=== PATIENT | female | born 1945 | race Caucasian/White ===

== ENCOUNTER → 2018-01-27 08:57 | Outpatient (CLI) | payer MEDICARE, OTHER, SELFPAY ==
[2018-01-27 09:24] LABS: Estimated Glomerular Filt Rate > 60.0 mL/min (>60)
--- NOTE | 2018-01-27 09:51 | DI.CT.S_ITS ---
PROCEDURE: CT ABDOMEN PELVIS WO/W CON INDICATIONS: HEMATURIA TECHNIQUE: Optional 5 mm thick noncontrast images acquired from the diaphragm to the symphysis pubis. After the administration of intravenous contrast, 5 mm thick images acquired from the diaphragm to the symphysis pubis after a 10-minute delay. 2 mm thick coronal and sagittal reformats were then performed of the kidneys and ureters. For radiation dose reduction, the following was used: automated exposure control, adjustment of mA and/or kV according to patient size. COMPARISON: None. FINDINGS: Image quality: Excellent. Lung bases: Lung bases are clear. Heart size is normal. Urinary system: Both kidneys are normal in size, without hydronephrosis or nephrolithiasis on pre-contrast images. No perinephric fat stranding. There is normal bilateral renal enhancement. Renal calyces appear normal in morphology when filled with contrast. Opacified portions of both ureters demonstrate normal caliber. Bladder wall thickness is normal. There are two filling defects identified in the right lateral bladder. The more superior focus measures 7 mm and the more posterior inferior focus measuring approximately 10 mm, anterolateral to the the ureterovesicular junction. Ot r solid organs: Liver is normal in size. Tiny low attenuation hepatic foci are present along the hepatic dome the largest measuring approximate 6 mm. Gallbladder is unremarkable. Biliary system is non dilated. Pancreas enhances normally. Spleen is normal in size and enhancement. No adrenal nodules. Peritoneum and bowel: Bowel loops demonstrate normal wall thickness and caliber. No free fluid or air. Nodes and vessels: No retroperitoneal or mesenteric adenopathy by size criteria. Aorta and inferior vena cava are normal in size. Abdominal wall: No ventral hernias. Pelvis: No pathologic free pelvic fluid. Fat-containing right inguinal hernia. Bones: 7 mm left iliac sclerotic focus. L5 hemangioma is noted. No vertebral body compression fractures. IMPRESSION: 1. Two filling defects are present in the right lateral bladder, the largest measuring 10 mm. Findings are concerning for neoplasm. Cystoscopy is recommended. 2. Left iliac sclerotic focus, suggestive of bone island. 3. Low attenuation hepatic foci too small to definitively characterize. These could represent small cysts. Recommend interval followup attention to this region. Dictated by: Tanisha Sheehan M.D. on 01/27/2018 at 11:26 Approved by: Tanisha Sheehan M.D. on 01/27/2018 at 12:26
== END ==
PROVIDERS: Family Provider Internal Medicine; PCP Internal Medicine; Visit Provider Physician Assistant
DX: Z01.812 Encounter for preprocedural laboratory examination (principal); R31.9 Hematuria, unspecified; K40.90 Unilateral inguinal hernia, without obstruction or gangrene, not specified as recurrent; R93.41 Abnormal radiologic findings on diagnostic imaging of renal pelvis, ureter, or bladder
CPT/HCPCS: 36415; 74178; 82565; Q9967

== ENCOUNTER → 2019-03-09 08:39 | Outpatient (CLI) | payer MEDICARE, OTHER, SELFPAY ==
--- NOTE | 2019-03-09 | DI.CT.S_ITS ---
PROCEDURE: CT ABDOMEN W CON INDICATIONS: LIVER DISEASE TECHNIQUE: After the administration of oral and intravenous contrast, 5 mm thick sections acquired from the diaphragms to the iliac crests. 5 mm thick coronal and sagittal reformats were acquired. For radiation dose reduction, the following was used: automated exposure control, adjustment of mA and/or kV according to patient size. COMPARISON: [facility], CT, CT ABDOMEN PELVIS WO/W CON, 01/27/2018, 9:48. FINDINGS: Image quality: Excellent. Lung bases: Lung bases are clear. Heart size is normal. Solid organs: Liver is normal in size and enhancement. The several subcentimeter hypodensities within the liver parenchyma on the right in the left are characteristic of small cysts rather than evidence of a solid mass lesion of either internal radiata density. Gallbladder appears normal. Biliary system is non dilated. Pancreas enhances normally. Spleen is normal in size and enhancement. No adrenal nodules. Kidneys are normal in size, without hydronephrosis. Peritoneum and bowel: Contrast enhanced bowel loops appear normal in caliber. No free fluid or air. Generalize colonic obstipation. Nodes and vessels: No retroperitoneal or mesenteric adenopathy by size criteria. Aorta and inferior vena cava are normal in size. Bones: No suspicious bony lesions. No vertebral body compression fractures. Miscellaneous: No ventral hernias. IMPRESSION: There are several small subcentimeter stable appearing water density hepatic cysts, no followup recommended. Generalized moderate colonic obstipation is noted. No intestinal obstruction or perforation is found. Dictated by: Peter Mullen M.D. on 03/09/2019 at 12:06 Approved by: Peter Mullen M.D. on 03/09/2019 at 12:09
[2019-03-09 09:18] LABS: Blood Urea Nitrogen 15 mg/dL (7-17); Calcium 9.3 mg/dL (8.4-10.2); Carbon Dioxide 31 mmol/L (22-32); Chloride 104 mmol/L (98-107); Cholesterol 216 mg/dL (140-199); Estimated Glomerular Filt Rate > 60.0 mL/min (>60); Glucose 95 mg/dL (80-110); HDL Cholesterol 65 mg/dL (40-60); HEMOLYSIS < 15 (0-50); LDL Cholesterol Calculated 119 mg/dL (<100); Potassium 4.1 mmol/L (3.4-5.1); Sodium 141 mmol/L (137-145); Triglycerides 160 mg/dL (35-150)
== END ==
PROVIDERS: PCP Internal Medicine; Visit Provider Internal Medicine
DX: Z13.1 Encounter for screening for diabetes mellitus (principal); Z13.220 Encounter for screening for lipoid disorders; K76.9 Liver disease, unspecified; K59.00 Constipation, unspecified
CPT/HCPCS: 36415; 74160; 80048; 80061; Q9967

== ENCOUNTER → 2019-03-29 12:06 | Outpatient (CLI) | payer MEDICARE, OTHER, SELFPAY ==
--- NOTE | 2019-03-29 | DI.MG.S_ITS ---
BILATERAL DIGITAL SCREENING MAMMOGRAM 3D/2D WITH CAD: 03/29/2019 CLINICAL: Routine screening. Comparison is made to exams dated: 05/08/2013 mammogram, 11/17/2010 mammogram, and 04/03/2009 mammogram - . There are scattered fibroglandular elements in both breasts. Current study was also evaluated with a Computer Aided Detection (CAD) system. No significant masses, calcifications, or other findings are seen in either breast. There has been no significant interval change. IMPRESSION: NEGATIVE There is no mammographic evidence of malignancy. A 1 year screening mammogram is recommended. This exam was interpreted at Station ID: [id number]. NOTE: For mammograms, a report in lay terms will be sent to the patient. Approximately 15% of breast malignancies will not be visualized mammographically. In the management of a palpable breast mass, a negative mammogram must not discourage biopsy of a clinically suspicious lesion. Electronically Signed By: Channing joseph/karen:03/29/2019 14:57:28 letter sent: Normal Exam ACR BI-RADS Category 1: Negative [id number]
== END ==
PROVIDERS: PCP Internal Medicine; Visit Provider Internal Medicine
DX: Z12.31 Encounter for screening mammogram for malignant neoplasm of breast (principal); M85.852 Other specified disorders of bone density and structure, left thigh; Z78.0 Asymptomatic menopausal state; F17.200 Nicotine dependence, unspecified, uncomplicated
CPT/HCPCS: 77063; 77067; 77080

== ENCOUNTER → 2019-05-02 18:28 | Outpatient (ROUT) | payer MEDICARE, OTHER, SELFPAY | PROVIDERS: PCP Internal Medicine; Visit Provider Internal Medicine | DX: R39.9 Unspecified symptoms and signs involving the genitourinary system (principal) | CPT/HCPCS: 87086 ==

== ENCOUNTER → 2020-01-16 15:01 | Outpatient (ROUT) | payer MEDICARE, OTHER, SELFPAY ==
[2020-01-16 15:27] LABS: Blood Urea Nitrogen 14 mg/dL (7-17); Calcium 9.1 mg/dL (8.4-10.2); Carbon Dioxide 29 mmol/L (22-32); Chloride 104 mmol/L (98-107); Estimated Glomerular Filt Rate > 60.0 mL/min (>60); Glucose 85 mg/dL (80-110); HEMOLYSIS < 15 (0-50); Magnesium 2.2 mg/dL (1.6-2.3); Sodium 138 mmol/L (137-145)
[2020-01-16 15:56] LABS: TSH w/ Reflex to FT4 2.99 uIU/mL (0.47-4.68)
== END ==
PROVIDERS: PCP Internal Medicine; Visit Provider Internal Medicine
DX: R00.2 Palpitations (principal)
CPT/HCPCS: 80048; 83735; 84443

== ENCOUNTER → 2020-07-18 08:05 | Outpatient (CLI) | payer MEDICARE, OTHER, SELFPAY ==
[2020-07-18 10:44] LABS: Cholesterol 205 mg/dL (140-199); HDL Cholesterol 62 mg/dL (40-60); LDL Cholesterol Calculated 99 mg/dL (<100); Triglycerides 219 mg/dL (35-150)
== END ==
PROVIDERS: PCP Internal Medicine; Referring Provider Internal Medicine; Visit Provider Internal Medicine
DX: E78.5 Hyperlipidemia, unspecified (principal)
CPT/HCPCS: 36415; 80061

== ENCOUNTER → 2020-08-18 11:46 | Outpatient (CLI) | payer MEDICARE, OTHER, SELFPAY ==
[2020-08-18 13:58] LABS: COVID19 -Nasal RAPID Negative (Negative)
== END ==
PROVIDERS: PCP Internal Medicine; Visit Provider Student in an Organized Health Care Education/Training Program
DX: Z20.822 Contact with and (suspected) exposure to COVID-19 (principal); Z01.812 Encounter for preprocedural laboratory examination
CPT/HCPCS: 87635; C9803

== ENCOUNTER → 2020-08-20 12:01 | Day surgery (SDC) | payer MEDICARE, OTHER, SELFPAY ==
--- NOTE | 2020-08-20 | PATH_ITS ---
[facility] Accession Number: [id number] . 01 Material submitted: . sigmoid colon - SIGMOID POLYP . 02 Diagnosis: Sigmoid Colon, Polyp, Biopsy: Tubular adenoma. MRV 08/25/2020 1123 Local . 02 Electronically signed: . Savanah Blanco MD, Pathologist NPI- [id number] . 01 Gross description: . SIGMOID POLYP: Received in formalin are 2 fragment(s) of andrade, soft tissue measuring 0.7 x 0.6 x 0.4 cm to 0.4 x 0.3 x 0.3 cm submitted entirely in 1 cassette(s) /LALITO 08/21/2020 0824 Local . 02 Pathologist provided ICD-10: D12.5 . 02 CPT . 921550 Performed at: 01 [facility] [address] [id number] MD Channing Garcia MD Phone: [phone] Performed at: [address] [facility] [address] [place], [place] [id number] MD Savanah Blanco MD Phone: [phone]
[2020-08-20] MEDS: LACTATED RINGERS 1,000 ML 200 ML IV (12:32)
[2020-08-20 12:33] VITALS: BP 136/75; PULSE 78; RESP 14; TEMP 36.7; O2SAT 97; BMI 28.8
--- NOTE | 2020-08-20 13:57 | PM.HP.1 ---
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 Mother Cancer Social History: household members spouse Tobacco & Substance use: Smoking Status Former smoker alcohol intake current alcohol intake frequency 0-2 drinks per day Substance Use Type does not use Meds Home Medications and Allergies Home Medications Medication Instructions Recorded Confirmed Type Metamucil 1 dose PO DAILY 08/20/20 08/20/20 History [id number]-agufovjs-zrikii 1 tab PO DAILY 08/20/20 08/20/20 History [Centrum Silver] Allergies Allergy/AdvReac Type Severity Reaction Status Date / Time azithromycin [AZITHROMYCIN] Allergy Unknown ITCHING Verified 09/14/17 15:15 doxycycline [DOXYCYCLINE] Allergy Unknown ITCHING Verified 09/14/17 15:15 Review of Systems Review of Systems ROS: Yes All systems reviewed with the patient and are negative except as otherwise documented Exam Vital Signs (past 8 hours): - 08/20/20 12:33 Temperature 98.1 F Pulse Rate 78 Respiratory Rate 14 Blood Pressure 136/75 Pulse Oximetry 97 Oxygen Delivery Method Room Air Narrative Exam Narrative: Awake alert and oriented x3, pupils equal round reactive to light, oropharynx clear, heart regular rate and rhythm, lungs clear to auscultation bilaterally, abdomen nontender and nondistended, extremities without edema, no gross neurologic deficits noted Assessment & Plan Assessment & Plan narrative: Colon cancer screening for colonoscopy COVID-19 COVID-19 status: Negative
[2020-08-20] MEDS: MIDAZOLAM 5 MG/5 ML VIAL IV (14:07)
[2020-08-20] MEDS: fentaNYL 250 MCG/5 ML INJ IV (14:08)
--- NOTE | 2020-08-20 14:26 | SUR.OPER ---
Patient ECG went from sinus rhythm to atrial fibrillation rate variable 90's to ll6. Dr. Maloney notified. BP stable, no distress. Plan to go to ER post procedure.
--- NOTE | 2020-08-20 14:36 | P.OP.ENDO_ITS ---
Operative Date/Time/Diagnoses Date of procedure: 08/20/20 Procedure & Clinicians Study performed: Colonoscopy with hot snare polypectomy Moderate conscious sedation was administered by the endoscopy nurse and supervised by the endoscopist. The following parameters were monitored: Oxygen saturation, heart rate, blood pressure, and response to care. 5 mg of midazolam and 100 mcg of fentanyl given. Same procedure as scheduled: Yes Indications: Colon cancer screening. No prior colonoscopy. Procedure Notes Procedure in detail: Prior to the procedure, history and physical was performed, and patient medications and allergies were reviewed. Preprocedure nursing history and assessment was reviewed. Patient identification and proposed pr ocedure were verified by the physician and nurse in the procedure room. The physical status of the patient was reassessed after the procedure. After informed consent was obtained including risks, benefits, and alternatives, the scope was passed under direct vision. Throughout the procedure, the patient's blood pressure, pulse, and oxygen saturations were monitored continuously. The colonoscope was introduced through the anus and advanced to the cecum as identified by the appendiceal orifice and ileocecal valve. The patient tolerated the procedure well. Bowel prep was deemed adequate to detect polyps greater than 5 mm. Perianal exam and digital rectal exam unremarkable. Retroflexion in the rectum was notable for hypertrophied anal papilla. A 14 mm pedunculated polyp was noted in the sigmoid colon. This was removed with a hot snare. The entire examined colon was tortuous. Significant looping noted in the sigmoid colon. Impression: Hypertrophied anal papilla 14 mm pedunculated polyp in the sigmoid colon removed Tortuous colon with looping in the sigmoid Sedation minutes: 25 Complications: other (EBL minimal. Atrial fibrillation with rapid ventricular rate developed during the colonoscopy. The patient remained hemodynamically stable throughout the procedure and immediately after a period she was transported in good condition to the emergency room from the GI suite.) Post-procedure Plan for aftercare: Follow-up pathology results Repeat colonoscopy at a date to be determined based on pathology results Resume home medications Resume previous diet New onset cardiac arrhythmia workup today in the ER. Disposition today will be determined by ER staff. Follow-up with PCP at next available appointment.
--- NOTE | 2020-08-20 16:50 | SUR.PHASEI ---
Report and discharge instructions printed and taken to ED per their request.
== END | disposition admitted as inpatient to this hospital (09) ==
PROVIDERS: PCP Internal Medicine; Referring Provider Internal Medicine; Visit Provider Internal Medicine
PROC: 0DJD8ZZ Inspection of Lower Intestinal Tract, Via Natural or Artificial Opening Endoscopic (ICD-10-PCS; CPT 45378; principal; 2020-08-20 13:00)
DX: Z12.11 Encounter for screening for malignant neoplasm of colon (principal); K64.4 Residual hemorrhoidal skin tags; D12.5 Benign neoplasm of sigmoid colon; I48.20 Chronic atrial fibrillation, unspecified
CPT/HCPCS: 45385; 36415; 80048; 83735; 84100; 92960; 93005; 99284; J2250; J2704; J3010

== ENCOUNTER 2020-08-20 14:50 | Emergency (ER) | payer MEDICARE, OTHER, SELFPAY ==
[2020-08-20] VITALS (31 sets, daily range): BP systolic 122–165; BP diastolic 56–90; PULSE 59–125; RESP 10–25; TEMP 36.4; O2SAT 96–99; BMI 28.8
[2020-08-20] MEDS: SODIUM CHLORIDE 0.9% 1,000 ML 125 ML IV (15:05)
--- NOTE | 2020-08-20 15:19 | ED.ARRPALP ---
HPI - Arrhythmia/Palpitations General Chief Complaint: Arrhythmia/Palpitations Stated Complaint: afib after colonoscopy Time Seen by Provider: 08/20/20 14:54 Source: patient Mode of arrival: Ambulatory Limitations: no limitations History of Present Illness HPI narrative: Patient is a 75-year-old female who this morning was undergoing a routine colonoscopy with sedation when during the episode patient developed atrial fibrillation with rapid ventricular response. According to the provider doing the colonoscopy the patient was in sinus rhythm at the start of the procedure and is now in atrial fibrillation. Blood pressures been stable. Patient was transported to the emergency department for further evaluation after her colonoscopy. Upon arrival patient states that she feels sleepy because of the sedation that she just received. She is not having any belly pain. No chest pain. No palpitations. No shortness of breath. She denies any prior history of atrial fibrillation. She does state that over the past several months last year she has had occasions where she felt like her heart was beating fast but it was not associated with any other symptoms to include chest pain or shortness of breath or lightheadedness. All of these events have resolved on their own. She has talk with her primary doctor about this however no further workup has been performed up to this point. Related Data Home Medications Medication Instructions Recorded Confirmed Metamucil 1 dose PO DAILY 08/20/20 08/20/20 [id number]-rzdutvtq-kuwxlb 1 tab PO DAILY 08/20/20 08/20/20 [Centrum Silver] Previous Rx's Medication Instructions Recorded apixaban [Eliquis] 5 mg PO BID #55 tab 08/20/20 Allergies Allergy/AdvReac Type Severity Reaction Status Date / Time azithromycin [AZITHROMYCIN] Allergy Unknown ITCHING Verified 08/20/20 14:51 doxycycline [DOXYCYCLINE] Allergy Unknown ITCHING Verified 08/20/20 14:51 Review of Systems Constitutional Constitutional: Denies headache(s) ENT Ears, Nose, Mouth, and Throat: Denies dizziness and Denies headache(s) Cardiovascular Cardiovascular: Denies chest pain, Denies rapid heart rate and Denies dyspnea Respiratory Respiratory: Denies dyspnea Gastrointestinal Gastrointestinal: Denies abdominal pain Musculoskeletal Musculoskeletal: Reports system reviewed and no additional complaints, except as documented Integumentary/Breasts Skin/Breast: Reports system reviewed and no additional complaints, except as documented Neurologic Neurologic: Reports system reviewed and no additional complaints, except as documented, Denies dizziness and Denies headache(s) Hematologic/Lymphatic On Anticoagulants: No Allergic/Immunologic Allergic/Immunologic: Reports system reviewed and no additional complaints, except as documented Patient History Medical History Allergic rhinitis (06/29/16) Allergic rhinitis (Unknown) Bladder cancer (~2018) Cataracts, bilateral (~1989) Change in bowel habits Chickenpox (~1949) Chronic back pain (2001) Hemorrhoids Instability of left ankle joint (06/29/16) Instability of left knee joint Left knee pain Measles (~1949) Neck pain (06/29/16) Osteoarthritis (Unknown) Ovarian cyst (~1972) Post-traumatic osteoarthritis of left ankle (06/29/16) Pure hypercholesterolemia (06/29/16) Tinnitus of both ears (1999) Surgical History (Updated 08/20/20 @ 11:58 by Ene Bae RN) H/O ovarian cystectomy History of appendectomy History of cataract removal with insertion of prosthetic lens History of cataract removal with insertion of prosthetic lens History of tonsillectomy Status post ovarian cystectomy Family History Father No problems noted. Mother Cancer Social History household members: spouse Smoking Status: Former smoker alcohol intake: current substance use type: does not use Smoking Status: Former smoker alcohol intake frequency: 0-2 drinks per day Substance Use Type: does not use Exam Initial Vital Signs Initial Vital Signs: Vital Signs Temperature 97.5 F L 08/20/20 14:50 Pulse Rate 103 H 08/20/20 14:50 Respiratory Rate 15 08/20/20 14:50 Blood Pressure 140/75 08/20/20 14:50 Pulse Oximetry 98 08/20/20 14:50 Const General: cooperative, comfortable and well developed Limitations: mental status not altered HENMT Head: normal to inspection and normocephalic Resp Effort & Inspection: normal respiratory effort Auscultation: clear to auscultation bilaterally Cardio Rate: regular rate Rhythm: regular rhythm GI Inspection: non-distended Palpation: soft Skin Lesions: no lesions Rashes: no rashes Neuro General: patient alert and patient awake Cognition: normal cognition Speech: speech normal Extrem General: normal to inspection and capillary refill normal Psych Appearance: grossly normal and well kempt Procedures Cardioversion Consent Signed: No Indication: Atrial fibrillation Stability: Stable Number of attempts (shocks): 1 Joules used: 120 Cardiac rhythm post-cardioversion: Sinus rhythm Procedural Sedation Consent signed: No Time out performed: Yes Indication: cardioversion Presedation Evaluation: See note ASA Class: II Mallampati Airway Classification: Class II Preparation: manager cardiac cath applied, pulse oximeter, capnometry used, supplemental O2 applied, suction/airway equipment at bedside and IV secured IV Propofol dose (mg): 50 Intraservice time/total sedation time (min): 15 ED Sedation Level: Moderate (Concious) Patient Tolerated Procedure: Well Complications: hypoxia Interventions: Airway repositioned and Oxygen applied Course Orders Ordered: Discontinued Medications Apixaban (Apixaban 5 Mg Tablet) 5 mg PO NOW ONE Stop: 08/20/20 17:26 Last Admin: 08/20/20 17:36 Dose: 5 mg Documented by: SUSAN Sodium Chloride (Normal Saline 0.9%) 1,000 mls @ 125 mls/hr IV CONT KENNA Last Infusion: 08/20/20 17:28 Dose: 0 mls/hr Documented by: Admin: 08/20/20 15:05 Dose: 125 mls/hr Documented by: SUSAN Propofol (Propofol 200 Mg/20 Ml Vial) 100 mg IV NOW ONE Stop: 08/20/20 15:19 Last Admin: 08/20/20 16:10 Dose: 50 mg Documented by: SUSAN Vital Signs Vital signs: Vital Signs - 8 hr 08/20/20 14:50 Temperature 97.5 F L Pulse Rate 103 H Respiratory Rate 15 Blood Pressure 140/75 Pulse Oximetry 98 MDM - Arrhythmia/Palpitations Lab Data Attestation: I reviewed the patient's lab results. Result diagrams: 08/20/20 15:38 08/20/20 15:38 Labs: Lab Results 08/20/20 08/20/20 Range/Units 15:38 15:38 Sodium 140 (137-145) mmol/L Potassium 3.8 (3.4-5.1) mmol/L Chloride 107 (98-107) mmol/L Carbon Dioxide 26 (22-32) mmol/L BUN 11 (7-17) mg/dL Creatinine 0.62 (0.52-1.04) mg/dL Estimated GFR > 60.0 (>60) mL/min BUN/Creatinine Ratio 17.7 (6-22) Glucose 81 (80-110) mg/dL Calcium 8.9 (8.4-10.2) mg/dL Phosphorus 3.2 (2.8-4.1) mg/dL Magnesium 2.1 (1.6-2.3) mg/dL Point of Care Testing Test Results Not applicable ECG Data Attestation: I personally reviewed and interpreted this ECG as follows: Prior ECG tracings: not available for review Interpretation: Atrial fibrillation Ventricular rate 102 Normal axis Normal QRS Normal QTC Nonspecific ST T wave changes Post cardioversion EKG Sinus rhythm Ventricular rate is 68 Normal QRS Normal QTC Nonspecific ST T wave changes MDM Narrative Medical decision making narrative: Patient does not have a history of atrial fibrillation. Her electrolytes were checked given the fact that she just had a colonoscopy prep within the past 24 hours and this resulted has unremarkable. Had a discussion with her regarding her symptoms. Since the symptoms had a known onset during her colonoscopy she is a candidate for cardioversion. We did discuss the risks and benefits of cardioversion. We discussed other options to include rate control and probable admission to the hospital. After this discussion the patient did give her verbal consent for a cardioversion. This was completed without incident. She tolerated the procedure very well. Will place her on Eliquis for the next 4 weeks. Informed her that she should contact her primary provider to discuss further workup although I do suspect that this event was related to her colonoscopy in the stress around this procedure. She was given return precautions. She expressed understanding agreement. Discharge Plan Departure Patient Disposition: Home Clinical Impression: Atrial fibrillation Instructions: DI for Atrial Fibrillation Activity Restrictions/Additional Instructions: I do recommend you follow all of the instructions given to you from your GI provider with regard to the colonoscopy. Continue all of your medications as directed. Contact your primary doctor to discuss the indications for further workup of your atrial fibrillation to include a Holter monitor. Return to the emergency department for any new or worsening symptoms Prescriptions: New Eliquis 5 mg tablet 5 mg PO BID Qty: 55 RF: 0 No Action Centrum Silver Tablet 1 tab PO DAILY RF: 0 Metamucil 1 dose PO DAILY RF: 0 Referrals: Neli Watkins MD [Primary Care Provider] -
[2020-08-20 16:07] LABS: BUN Creatinine Ratio 17.7 (6-22); Blood Urea Nitrogen 11 mg/dL (7-17); Calcium 8.9 mg/dL (8.4-10.2); Carbon Dioxide 26 mmol/L (22-32); Chloride 107 mmol/L (98-107); Estimated Glomerular Filt Rate > 60.0 mL/min (>60); Glucose 81 mg/dL (80-110); HEMOLYSIS < 15 (0-50); Magnesium 2.1 mg/dL (1.6-2.3); Phosphorous 3.2 mg/dL (2.8-4.1); Potassium 3.8 mmol/L (3.4-5.1); Sodium 140 mmol/L (137-145)
[2020-08-20] MEDS: propofoL 200 MG/20 ML VIAL 100 MG IV (16:10)
--- NOTE | 2020-08-20 16:29 | PC.NURSE ---
Pt reports pain at pad placement site, states My skin is irritated. Pad removed and skin is slightly red where the pad was, skin intact. Ice pack given as requested. aware.
[2020-08-20] MEDS: APIXABAN 5 MG TABLET PO (17:36)
== END 2020-08-20 17:51 | disposition home or self-care (01) ==
PROVIDERS: Emergency Provider Emergency Medicine; PCP Internal Medicine
DX: I48.20 Chronic atrial fibrillation, unspecified (principal)
CPT/HCPCS: 36415; 80048; 83735; 84100; 92960; 93005; J2704

== ENCOUNTER → 2020-08-23 09:57 | Outpatient (CLI) | payer MEDICARE, OTHER, SELFPAY ==
--- NOTE | 2020-08-23 10:00 | DI.MRI.S_ITS ---
PROCEDURE: MR CERVICAL SPINE WO CON INDICATIONS: Spinal stenosis, cervical region TECHNIQUE: Noncontrast sagittal T1 spin echo and T2 fast spin echo, sagittal STIR, foraminal oblique sagittal T2 fast spin echo, and axial gradient echo or T2 fast spin echo through the cervical spine. COMPARISON: [facility] [place], CR, XR CERVICAL SPINE 6+ VIEWS, 08/19/2020, 10:19. FINDINGS: Image quality: Excellent. Alignment and Curvature: Mild degenerative anterolisthesis of C3 on C4 and of C2 on C3. Bone Marrow: Marrow demonstrates normal overall signal. Spinal Cord: Visualized spinal cord has normal size and signal. No cerebellar tonsillar herniation. Paraspinous Soft Tissues: No paravertebral masses. Prevertebral soft tissues are normal in thickness. C2-C3: Mild central posterior disc protrusion without canal stenosis. Bilateral facet hypertrophy, prominent on the left. [id number] right foraminal narrowing. Moderate to severe left foraminal narrowing with flattening deformity on the exiting left C3 nerve root. C3-C4: There is a focal central posterior disc protrusion which mildly indents on the cord. There is mild canal stenosis. AP diameter of the canal is 9 mm. There is bilateral facet hypertrophy and there is left uncovertebral joint hypertrophy. There is moderate to severe left lateral recess stenosis. Left facet hypertrophy is impressive. There is [id number] right foraminal narrowing and severe left foraminal narrowing with impingement on the exiting left C4 nerve root. C4-C5: There is diffuse posterior disc plus osteophyte. This flattens the ventral aspect of the cord. AP diameter of the canal is 9 mm. There is bilateral uncovertebral joint hypertrophy. There is bilateral facet hypertrophy. There is severe bilateral foraminal narrowing with bilateral C5 nerve root impingement. C5-C6: Prominent diffuse posterior disc post osteophyte flattening the cord. There is severe canal stenosis. AP diameter of the canal is 7 mm. There are prominent bilateral uncovertebral joint osteophytes and there is bilateral facet hypertrophy. There is severe bilateral foraminal narrowing with bilateral C6 nerve root impingement. C6-C7: There is diffuse posterior disc osteophyte complex. There is severe canal stenosis. AP diameter of the canal is 7.7 mm. There is bilateral uncovertebral joint hypertrophy. There is severe right foraminal narrowing with right C7 nerve root impingement. There is moderate left foraminal narrowing with flattening deformity on the exiting left C7 nerve root. C7-T1: No canal stenosis. Mild bilateral foraminal stenosis. IMPRESSION: 1. There is severe diffuse spondylitic change. 2. Canal stenosis is mild at C3-C4 and C4-C5. It is severe at C5-C6 and C6-C7. 3. Significant multilevel foraminal narrowing as described above. Findings include moderate to severe or severe foraminal narrowing at multiple levels. Dictated by: Lonnie Hernandez M.D. on 08/25/2020 at 8:55 Approved by: Lonnie Hernandez M.D. on 08/25/2020 at 9:14
== END ==
PROVIDERS: PCP Internal Medicine; Referring Provider Physical Medicine & Rehabilitation; Visit Provider Physical Medicine & Rehabilitation
DX: M48.02 Spinal stenosis, cervical region (principal); M47.812 Spondylosis without myelopathy or radiculopathy, cervical region
CPT/HCPCS: 72141

== ENCOUNTER → 2020-11-06 09:32 | Outpatient (CLI) | payer MEDICARE, OTHER, SELFPAY ==
[2020-11-06 10:11] LABS: COVID19 -Nasal RAPID Negative (Negative)
== END ==
PROVIDERS: PCP Internal Medicine; Visit Provider Specialist
DX: Z20.822 Contact with and (suspected) exposure to COVID-19 (principal); Z01.812 Encounter for preprocedural laboratory examination
CPT/HCPCS: 87635

== ENCOUNTER 2020-11-07 09:21 | Day surgery (SDC) | payer MEDICARE, OTHER, SELFPAY ==
[2020-11-05 12:24] VITALS: BMI 29.0
[2020-11-07] VITALS (11 sets, daily range): BP systolic 124–145; BP diastolic 53–87; PULSE 55–85; RESP 14–16; TEMP 36.2–37.2; O2SAT 97–100; BMI 29.0
--- NOTE | 2020-11-07 | PATH_ITS ---
[facility] Accession Number: [id number] . 01 Material submitted: . body - RESECTION OF INTERCAVITARY FIBROID AND POLYP . 02 Diagnosis: Resection of Intercavitary Fibroid and Polyp: Disordered proliferative endometrium. Multiple portions of benign endometrial polyp. Negative for glandular hyperplasia, cytologic atypia, or malignancy. Portions of myometrium; negative for atypia or malignancy. V 11/12/2020 1642 Local . 02 Comment: Parts of this case were reviewed by Dr. Geoffrey Saleem, who concurs with this interpretation. . 02 Electronically signed: . Jailene Salgado MD, Pathologist NPI- [id number] . 01 Gross description: . The specimen is received in formalin, labeled intercavitary fibroid and polyp, and consists of multiple andrade-pink fragments of soft tissue measuring 5.0 x 4.0 x 2.0 cm in aggregate. The larger fragments are serially sectioned, and the specimen is entirely submitted in cassettes A1-A6. ([id number]) /[facility] 11/08/2020 1640 Local . 02 Microscopic: . An immunohistochemistry study is performed to evaluate the cells of interest. The control stains show appropriate reactivity. . RESULTS: Block A1: CD10: Positive in regions of interest. Myosin: Negative in regions of interest. . Block A6: Myosin: Negative in regions of interest. . Immunohistochemistry studies favor a benign endometrial polyp and mitigate against a benign adenomyoma. . * This test was developed and its performance characteristics determined by [employer]. It has not been cleared or approved by the U.S. Food and Drug Administration. The FDA has determined that such clearance or approval is not necessary. This test is used for clinical purposes. It should not be regarded as investigational or for research . 02 Pathologist provided ICD-10: N95.0, R93.89 . 02 CPT . 954005, Y68009, Y03501 Performed at: 01 [facility] [address] [id number] MD Channing Garcia MD Phone: [phone] Performed at: [id number] [place], [place] [id number] MD Savanah Blanco MD Phone: [phone]
[2020-11-07] MEDS: LACTATED RINGERS 1,000 ML 42 ML IV (09:33)
--- NOTE | 2020-11-07 10:03 | PM.PREOP ---
Pre-operative Note COVID-19 COVID-19 status: Negative Result date/Date tested (Pos, Neg/Pending): 11/06/20 Interval Note History & Physical reviewed/Exam performed by Physician: Yes Changes to H&P: No
--- NOTE | 2020-11-07 10:10 | SUR.OPER ---
Lithotomy on padded OR bed, head on pillow, arms secured on padded arm boards at <90 degrees abduction. Legs secured in padded yellow fins stirrups.
--- NOTE | 2020-11-07 11:34 | P.OP_ITS ---
Operative Date/Time/Diagnoses Date of procedure: 11/07/20 Time of procedure: 11:35 Pre-op diagnosis: Postmenopausal bleeding with thickened endometrium on ultrasound Post-op diagnosis: same Procedure & Clinicians Procedure: Hysteroscopy with resection of intracavitary fibroid and polyps Same procedure as scheduled: Yes Indications: Postmenopausal bleeding with thickened endometrium on ultrasound Surgeon: Marlen Rodriguez Click Yes if Unassisted: Yes Anesthesia Type: General Operative Notes Closure Type: not applicable Specimen(s): other (Fibroid and polyps from cavity of uterus) Estimated Blood Loss (mL): 20 Blood products transfused: none Procedure in detail: The patient was brought to the operating room where she underwent general anesthesia. She was placed in low stirrups She was prepped and draped in usual sterile fashion with pulsatile stockings in place and functional, warming in artemio ce. Antibiotics were not indicated. Her bladder was drained with in and out catheter. A check system was reviewed with the staff in the room prior to beginning the case. A single-tooth tenaculum was placed on the anterior lip of the cervix and the uterus dilated to #8 Hegar dilator. The hysteroscope was placed into the uterus with a sorbitol solution running and under constant suction. The resecting loop set at 80 W of cutting was used to resect the fibroid and polyps down to the level of the endometrium. The fibroid and polyps sent to pathology. The patient went to recovery room in good condition counts of instruments and sponges were correct. The sorbitol solution I=O approximately 4000 mL. Complications: none Post-operative Condition: stable Disposition: same day surgery Plan for aftercare: Home when awake and stable. Treatment and follow-up based on biopsy results.
[2020-11-07] MEDS: fentaNYL 100 MCG/2 ML INJ IV (11:55)
--- NOTE | 2020-11-07 12:09 | SUR.PHASEI ---
1210- noted multiple runs of afib. EKG called
[2020-11-07] MEDS: OXYCODONE IR 5 MG TABLET PO (12:28)
== END 2020-11-07 13:35 | disposition home or self-care (01) ==
PROVIDERS: PCP Internal Medicine; Referring Provider Specialist; Visit Provider Specialist
PROC: 0UDB8ZZ Extraction of Endometrium, Via Natural or Artificial Opening Endoscopic (ICD-10-PCS; CPT 58558; principal; 2020-11-07 10:15)
DX: N95.0 Postmenopausal bleeding (principal); R93.89 Abnormal findings on diagnostic imaging of other specified body structures; E78.5 Hyperlipidemia, unspecified; Z79.01 Long term (current) use of anticoagulants; I48.91 Unspecified atrial fibrillation
CPT/HCPCS: 58561; 93005; 93010; J0690; J1100; J2250; J2405; J2704; J3010

== ENCOUNTER → 2021-04-08 14:50 | Outpatient (CLI) | payer MEDICARE, SELFPAY ==
--- NOTE | 2021-04-08 14:55 | DI.MG.S_ITS ---
BILATERAL DIGITAL SCREENING MAMMOGRAM 3D/2D WITH CAD: 04/08/2021 CLINICAL: Routine screening. Comparison is made to exams dated: 03/29/2019 mammogram, 05/08/2013 mammogram, and 11/17/2010 mammogram - [facility]. There are scattered fibroglandular elements in both breasts. Current study was also evaluated with a Computer Aided Detection (CAD) system. No significant masses, calcifications, or other findings are seen in either breast. There has been no significant interval change. IMPRESSION: NEGATIVE There is no mammographic evidence of malignancy. A 1 year screening mammogram is recommended. This exam was interpreted at Station ID: [id number]. NOTE: For mammograms, a report in lay terms will be sent to the patient. Approximately 15% of breast malignancies will not be visualized mammographically. In the management of a palpable breast mass, a negative mammogram must not discourage biopsy of a clinically suspicious lesion. Electronically Signed By: Sancho Hooks M.D., jr/karen:04/08/2021 15:22:11 letter sent: Normal Exam ACR BI-RADS Category 1: Negative [id number]
== END ==
PROVIDERS: PCP Internal Medicine; Referring Provider Internal Medicine; Visit Provider Internal Medicine
DX: Z12.31 Encounter for screening mammogram for malignant neoplasm of breast (principal)
CPT/HCPCS: 77063; 77067

== ENCOUNTER → 2021-07-28 15:35 | Outpatient (CLI) | payer MEDICARE, SELFPAY ==
[2021-07-28 17:44] LABS: Appearance Urine UA SL CLOUDY; Bilirubin Urine UA NEGATIVE (NEGATIVE); Color Urine UA YELLOW; Glucose Urine UA NEGATIVE (Negative); Ketones Urine UA NEGATIVE (NEGATIVE); Leukocyte Esterase Urine UA 2+ (NEGATIVE); Nitrite Urine UA NEGATIVE (Negative); Occult Blood Urine UA 3+ (Negative); Protein Urine UA 2+ (Negative); Urobilinogen Urine UA 0.2 E.U./dL (0.2)
[2021-07-28 17:46] LABS: Add Manual Diff / Slide Review NO; Basophils Absolute Auto 0 /uL (0-100); Basophils Percent Auto 0.5 % (0-2); Eosinophils Absolute Auto 100 /uL (0-450); Eosinophils Percent Auto 0.9 % (2-4); Hematocrit 28.3 % (36-46); Hemoglobin 9.7 g/dL (12.0-16.0); Lymphocytes Absolute Auto 1300 /uL (1100-4500); Lymphocytes Percent Auto 12.2 % (25-40); Mean Corpuscular HGB Conc 34.3 % (30-36); Mean Corpuscular Volume 90.4 fL (80-100); Monocytes Absolute Auto 500 /uL (0-900); Monocytes Percent Auto 4.6 % (3-14); Neutrophils Absolute Auto 8500 /uL (1500-7000); Neutrophils Percent Auto 81.8 % (50-75); Platelet Count 236 X10^3/uL (150-400); Red Blood Cell Count 3.13 X10^6/uL (4.0-5.2); Red Cell Distribution Width 13.3 % (11.6-14.8); White Blood Cell Count 10.4 X10^3/uL (4.5-11.0)
[2021-07-28 18:20] LABS: Bacteria Urine Few (2-10); Culture Indicated Urine Specimen Cultured; RBC Urine 10-30/HPF (0-5/HPF); Squamous Epithelial Cell Urine 1-5 /HPF (0-5/HPF); WBC Urine >100/HPF (0-5/HPF)
== END ==
PROVIDERS: PCP Internal Medicine; Referring Provider Nurse Practitioner Family; Visit Provider Nurse Practitioner Family
DX: I48.91 Unspecified atrial fibrillation (principal)
CPT/HCPCS: 36415; 81001; 85025; 87077; 87086; 87186

== ENCOUNTER 2021-07-30 21:01 | Emergency (ER) | payer MEDICARE, SELFPAY ==
[2021-07-30] VITALS (14 sets, daily range): BP systolic 68–129; BP diastolic 43–76; PULSE 85–144; RESP 10–25; TEMP 36.9; O2SAT 44–100
--- NOTE | 2021-07-30 21:22 | PC.NURSE ---
Afib ablation last and has left groin access site. Pt was held in hospital for 2 days due to hematoma in left groin. Pt was walking at home today and sat in a chair when she experienced sudden onset severe left groin pain and subjective increase in size of her left groin hematoma. Pt has extensive bruising in left groin/leg. Hematoma in left groin is moderate size, will closely monitor for increased size. Pt has strong pedal pulse in LLE. Pt reports continued pain in left groin. Pt remains AxOx4, GCS 15. Pt informed she should keep her LLE as still as possible to avoid recurring bleeding. Pt verbalized understanding. Pt had purewick placed to urinate. Bedding change completed afterwards. Family to bedside.
[2021-07-30 21:48] LABS: Add Manual Diff / Slide Review NO; Basophils Absolute Auto 100 /uL (0-100); Basophils Percent Auto 0.9 % (0-2); Eosinophils Absolute Auto 100 /uL (0-450); Eosinophils Percent Auto 1.4 % (2-4); Hematocrit 26.7 % (36-46); Hemoglobin 9.1 g/dL (12.0-16.0); Lymphocytes Absolute Auto 1100 /uL (1100-4500); Lymphocytes Percent Auto 16.4 % (25-40); Mean Corpuscular HGB Conc 34.2 % (30-36); Mean Corpuscular Volume 90.7 fL (80-100); Monocytes Absolute Auto 400 /uL (0-900); Monocytes Percent Auto 6.4 % (3-14); Neutrophils Absolute Auto 5200 /uL (1500-7000); Neutrophils Percent Auto 74.9 % (50-75); Platelet Count 245 X10^3/uL (150-400); Red Blood Cell Count 2.95 X10^6/uL (4.0-5.2); Red Cell Distribution Width 13.4 % (11.6-14.8)
--- NOTE | 2021-07-30 22:08 | PC.NURSE ---
Left groin hematoma unchanged. Groin still has markings on skin where hematoma was when she was here in hospital last week. The current hematoma is consistent with these markings.
[2021-07-30 22:23] LABS: PTT Partial Thromboplastin Tim 36 SECONDS (26.4-36.2)
[2021-07-30 22:26] LABS: Alanine Aminotransferase 13 IU/L (<35); Albumin 3.8 g/dL (3.5-5.0); Albumin Globulin Ratio 1.4 (1.0-2.8); Alkaline Phosphatase 69 U/L (38-126); Aspartate Aminotransferase 20 IU/L (14-36); BUN Creatinine Ratio 25.3 (6-22); Blood Urea Nitrogen 19 mg/dL (7-17); Carbon Dioxide 27 mmol/L (22-32); Chloride 106 mmol/L (98-107); Creatine Kinase 29 U/L (30-135); Estimated Glomerular Filt Rate > 60 mL/min (>60); Globulin 2.8 g/dL (1.7-4.1); Glucose 112 mg/dL (80-110); HEMOLYSIS < 15 (0-50); Lipase 130 U/L (23-300); Magnesium 2.3 mg/dL (1.6-2.3); Potassium 4.2 mmol/L (3.4-5.1); Sodium 141 mmol/L (137-145); Total Protein 6.6 g/dL (6.3-8.2)
[2021-07-30 22:28] LABS: INR 1.3 (0.9-1.3)
--- NOTE | 2021-07-30 22:41 | PC.NURSE ---
This RN entered pt room with pain medications to administer for pt pain. Pt endorsed feeling dizzy and having waves of feeling lightheaded. BP bilaterally was low, 70s/50s. After a few minutes, BP 101/57. Fentanyl held at this time until MD assesses pt. Provider aware of low BP and pt symptoms. Pt remains AxOx4.
--- NOTE | 2021-07-30 22:44 | ED.LOWEXIN ---
HPI - Extremity Injury (Lower) General Chief Complaint: Extremity Injury, Lower Stated Complaint: Hematoma pain sp afib ablation Time Seen by Provider: 07/30/21 22:28 Source: patient Limitations: no limitations History of Present Illness HPI Narrative: This is a 76 year old female who comes in with complaint of increasing pain and swelling of her left thigh hematoma. Patient had cardiac catheterization for ablation at [facility]. Patient states today she sat in a very hard chair which she has not done recently and it cause some pain and when she got up to start walking again her pain was significantly increased. Patient states that hematoma was quite large post catheterization and that she was watched for 2 days in the hospital. She was discharged home and has been ambulating gently but had not had a hard chair in this position before. Patient is on Eliquis daily for AFib. She has had some occasional dizzy episodes today for very short periods of time. She denies any chest pain or shortness of breath. She denies any syncope. She denies any nausea or vomiting. She denies any new GI or urinary symptoms. Patient states that the bruising does not seem to have spread today. She did feel that the hematoma felt harder than it had earlier. She states while in the hospital I continue to monitor and it did not get harder because softer and smaller during her stay and is marked from her hospital stay. She is only on Eliquis and a antacid medication. She has not any medications for rate control. She denies any cardiac stents. She was given [place] for pain control she has taken 3 tablets total and has not had any for several days. She lives at home and normally walks independently. Related Data Home Medications Medication Instructions Recorded Confirmed midaebsnvkkc-cgyrtjtw-kytsbz tablet 1 tab PO DAILY 08/20/20 03/09/21 psyllium 1 packet PO DAILY 08/20/20 03/09/21 Previous Rx's Medication Instructions Recorded apixaban 5 mg tablet (Eliquis) 5 mg PO BID #55 tab 08/20/20 amiodarone 200 mg tablet See Rx Instructions .ROUTE 07/31/21 .COMPLEX #60 tab Allergies Allergy/AdvReac Type Severity Reaction Status Date / Time azithromycin [AZITHROMYCIN] Allergy Unknown ITCHING Verified 03/09/21 10:50 doxycycline [DOXYCYCLINE] Allergy Unknown ITCHING Verified 03/09/21 10:50 Review of Systems Review of Systems ROS Unobtainable: All systems reviewed & are unremarkable except as noted in HPI and below Patient History Medical History Allergic rhinitis (06/29/16) Allergic rhinitis (Unknown) Bladder cancer (~2018) Cataracts, bilateral (~1989) Change in bowel habits Chickenpox (~1949) Chronic back pain (2001) Hemorrhoids Instability of left ankle joint (06/29/16) Instability of left knee joint Left knee pain Measles (~1949) Neck pain (06/29/16) Osteoarthritis (Unknown) Ovarian cyst (~1972) 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 Mother Cancer Social History household members: spouse and family Smoking Status: Former smoker alcohol intake: former substance use type: does not use Smoking Status: Former smoker alcohol intake frequency: 0-2 drinks per day Substance Use Type: does not use Exam Narrative Exam Narrative: GENERAL: Alert and oriented x three, elderly female in mild distress. HEENT: Head normocephalic, atraumatic, EOMI, pupils reactive, face symmetric, moist mucous membranes NECK: Supple, full range of motion CARDIOVASCULAR: Irregularly irregular and tachycardic rate and rhythm without murmurs, rubs or gallops. No JVD. RESPIRATORY: Breath sounds equal bilaterally, no wheezes rales or rhonchi. No tachypnea or accessory muscle use. Speaks in full sentences. ABDOMEN: Soft, nontender. Normoactive bowel sounds all 4 quadrants. No guarding or rebound, rigidity, no mass : No CVA tenderness EXTREMITIES: Normal range of motion, patient has significant hematoma at the left groin with bills along the distal edge. It does not extend beyond the site. There is firmness. There is no warmth or erythema. Patient has significant bruising down her thigh, buttock and into her right flank. Patient states that this is not new or changed. Neurovascularly intact. 2+ dorsalis pulses bilaterally. Normal sensation to light touch. Patient pain with movement of her left thigh prefers to hold it externally rotated but is able to move her legs appropriately with normal muscle strength. NEUROLOGICAL: Cranial nerves II through XII grossly intact. Moving all extremities SKIN: Warm, dry, no petechiae, no rashes or lesions, see above. Initial Vital Signs Initial Vital Signs: Vital Signs Temperature 98.4 F 07/30/21 21:14 Pulse Rate 138 H 07/30/21 21:14 Respiratory Rate 16 07/30/21 21:14 Blood Pressure 129/76 07/30/21 21:14 Pulse Oximetry 97 07/30/21 21:14 Course Orders Ordered: ED Orders 07/31/21 00:00 Trop I [Troponin I] Stat Discontinued Medications Hydrocodone Bitart/Acetaminophen (Hydrocodone/Acet 5/325 Tablet) 1 tab PO NOW ONE Stop: 07/31/21 02:09 Last Admin: 07/31/21 02:17 Dose: 1 tab Documented by: [email or web address] Amiodarone HCl (Amiodarone 200 Mg Tablet) 400 mg PO NOW ONE Stop: 07/31/21 01:52 Last Admin: 07/31/21 02:18 Dose: 400 mg Documented by: [email or web address] Fentanyl (Fentanyl 100 Mcg/2 Ml Inj) 50 mcg IV NOW ONE Stop: 07/30/21 22:29 Last Admin: 07/30/21 23:03 Dose: 50 mcg Documented by: [email or web address] Reevaluation(s) Reevaluation #1: Patient still has pain in her thigh but does feel much better. She did have narcotic pain medication through the IV earlier this evening but had not had any additional. Reviewed her findings from today, recommendations from Cardiology and long discussion about signs and symptoms to watch, reasons to return, options for helping her safely about the house, and preventing worsening of her pain. All questions answered. Time: 02:10 Consultations Consultation #1: Dr. Licea, cardiology [facility]. Discussed patient arrived today for pain and her hematoma site. This appears stable her hemoglobin appears stable, ultrasound does not show active bleed pseudo aneurysm. She does have a large hematoma. Patient did arrive in AFib RVR she did have hypotension she was not symptomatic in terms of chest pain or shortness of breath but has had dizziness earlier today. Electrolytes are appropriate, troponin is positive and is not trending upwards in the department. Patient is on Eliquis and an acid but no medications for rate control. After discussion he recommends patient be placed on amiodarone. 400 mg p.o. b.i.d. x1 week followed by 200 mg p.o. b.i.d. x1 week followed by 200 mg p.o. daily patient is to be seen later this month in the office on the or . Patient can call for sooner appointment but they may not be able to accommodate. Vital Signs Vital signs: Vital Signs - 8 hr 07/31/21 00:00 07/31/21 00:15 07/31/21 00:30 Pulse Rate 90 88 89 Respiratory Rate 19 20 21 Blood Pressure 119/57 L 119/57 L 120/58 L Pulse Oximetry 07/31/21 00:45 07/31/21 01:00 07/31/21 01:15 Pulse Rate 85 85 84 Respiratory Rate 11 L 16 11 L Blood Pressure 110/56 L 114/53 L 115/58 L Pulse Oximetry 07/31/21 01:30 07/31/21 01:45 07/31/21 02:00 Pulse Rate 87 84 86 Respiratory Rate 31 H 9 L 22 Blood Pressure 119/58 L 112/55 L 123/60 Pulse Oximetry 07/31/21 02:22 07/31/21 02:30 07/31/21 02:45 Pulse Rate 91 H 84 81 Respiratory Rate 13 16 14 Blood Pressure 132/58 L 126/60 130/60 Pulse Oximetry 97 99 99 07/31/21 02:57 Pulse Rate 87 Respiratory Rate 17 Blood Pressure 130/62 Pulse Oximetry 98 MDM - Extremity Injury (Lower) Lab Data Result diagrams: 07/30/21 21:35 07/30/21 22:09 Labs: Lab Results 07/30/21 07/30/21 07/30/21 Range/Units 21:35 22:00 22:09 WBC 7.0 (4.5-11.0) X10^3/uL RBC 2.95 L (4.0-5.2) X10^6/uL Hgb 9.1 L (12.0-16.0) g/dL Hct 26.7 L (36-46) % MCV 90.7 (80-100) fL MCH 31.0 (26-34) PG MCHC 34.2 (30-36) % RDW 13.4 (11.6-14.8) % Plt Count 245 (150-400) X10^3/uL Neut % (Auto) 74.9 (50-75) % Lymph % (Auto) 16.4 L (25-40) % [place] % (Auto) 6.4 (3-14) % Eos % (Auto) 1.4 L (2-4) % Baso % (Auto) 0.9 (0-2) % Neut # (Auto) 5200 (3571-4802) /uL Lymph # (Auto) 1100 (9161-3305) /uL Adair # (Auto) 400 (0-900) /uL Eos # (Auto) 100 (0-450) /uL Baso # (Auto) 100 (0-100) /uL PT 15.0 H (10.1-12.7) SECONDS INR 1.3 (0.9-1.3) APTT (26.4-36.2) SECONDS Sodium (137-145) mmol/L Potassium (3.4-5.1) mmol/L Chloride (98-107) mmol/L Carbon Dioxide (22-32) mmol/L BUN (7-17) mg/dL Creatinine (0.52-1.04) mg/dL Estimated GFR (>60) mL/min BUN/Creatinine Ratio (6-22) Glucose (80-110) mg/dL Calcium (8.4-10.2) mg/dL Magnesium (1.6-2.3) mg/dL Total Bilirubin (0.2-1.3) mg/dL AST (14-36) IU/L ALT (<35) IU/L Alkaline Phosphatase (38-126) U/L Total Creatine Kinase (30-135) U/L CK-MB (CK-2) CK-MB (CK-2) Rel Index Troponin I (0.01-0.034) ng/mL NT-Pro-B Natriuret Pep 500 H (<125) pg/mL Total Protein (6.3-8.2) g/dL Albumin (3.5-5.0) g/dL Globulin (1.7-4.1) g/dL Albumin/Globulin Ratio (1.0-2.8) Lipase (23-300) U/L 07/30/21 07/30/21 07/30/21 Range/Units 22:09 22:09 23:51 WBC (4.5-11.0) X10^3/uL RBC (4.0-5.2) X10^6/uL Hgb (12.0-16.0) g/dL Hct (36-46) % MCV (80-100) fL MCH (26-34) PG MCHC (30-36) % RDW (11.6-14.8) % Plt Count (150-400) X10^3/uL Neut % (Auto) (50-75) % Lymph % (Auto) (25-40) % [place]air % (Auto) (3-14) % Eos % (Auto) (2-4) % Baso % (Auto) (0-2) % Neut # (Auto) (4221-5492) /uL Lymph # (Auto) (9376-1134) /uL Adair # (Auto) (0-900) /uL Eos # (Auto) (0-450) /uL Baso # (Auto) (0-100) /uL PT (10.1-12.7) SECONDS INR (0.9-1.3) APTT 36 (26.4-36.2) SECONDS Sodium 141 (137-145) mmol/L Potassium 4.2 (3.4-5.1) mmol/L Chloride 106 (98-107) mmol/L Carbon Dioxide 27 (22-32) mmol/L BUN 19 H (7-17) mg/dL Creatinine 0.75 (0.52-1.04) mg/dL Estimated GFR > 60 (>60) mL/min BUN/Creatinine Ratio 25.3 H (6-22) Glucose 112 H (80-110) mg/dL Calcium 9.0 (8.4-10.2) mg/dL Magnesium 2.3 (1.6-2.3) mg/dL Total Bilirubin 1.0 (0.2-1.3) mg/dL AST 20 (14-36) IU/L ALT 13 (<35) IU/L Alkaline Phosphatase 69 (38-126) U/L Total Creatine Kinase 29 L (30-135) U/L CK-MB (CK-2) TNP CK-MB (CK-2) Rel Index TNP Troponin I 0.216 H* 0.206 H* (0.01-0.034) ng/mL NT-Pro-B Natriuret Pep (<125) pg/mL Total Protein 6.6 (6.3-8.2) g/dL Albumin 3.8 (3.5-5.0) g/dL Globulin 2.8 (1.7-4.1) g/dL Albumin/Globulin Ratio 1.4 (1.0-2.8) Lipase 130 (23-300) U/L Imaging Data Chest x-ray: Radiologist's Impression: [address] [address] XRay Report Signed Patient: Kalina Baptiste MR#: [id number] : 1945 Acct:[id number] Age/Sex: 76 / F Date of Service: 07/30/21 Loc: ED Accession Number: [id number] ?? Procedure: XR chest 1V Ordering Provider: Jeanne Mccloud D.O. PROCEDURE:? XR CHEST 1V ? INDICATIONS:? groin hematoma ? TECHNIQUE:? One view of the chest was acquired.? ? COMPARISON:? None. ? FINDINGS:? ? Surgical changes and devices:? None.? ? Lungs and pleura:? Lungs are clear.? No pleural effusions or pneumothorax.? ? Mediastinum:? Mediastinal contours appear normal.? Heart size is normal.? ? Bones and chest wall:? No suspicious bony lesions.? Overlying soft tissues appear unremarkable.? ? IMPRESSION:? ? 1.? No acute cardiopulmonary disease. ? ? Dictated by: Channing Villatoro M.D. on 07/30/2021 at 23:39 ? ? Approved by: Channing Villatoro M.D. on 07/30/2021 at 23:40?? US leg: Radiologist's Impression: Launch?Image [address] [address] Ultrasound Report Signed Patient: Kalina Baptiste MR#: [id number] : 1945 Acct:[id number] Age/Sex: 76 / F Date of Service: 07/30/21 Loc: ED Accession Number: [id number] ?? Procedure: US extremity nonvasc lower lt Ordering Provider: Jeanne Mccloud D.O. PROCEDURE:? US EXTREMITY NONVASC LOWER LT ? INDICATIONS:? GROIN HEMATOMA 1 WEEK POST CARDIAC CATH ? TECHNIQUE:? Real-time scanning was performed of the left inguinal region, with image documentation.? ? COMPARISON:? None. ? FINDINGS:? ? There is a heterogeneous collection in the left inguinal region measuring 7.4 x 5.5 x 14.4 cm consistent with a hematoma.? No internal vascularity on color Doppler interrogation to suggest a pseudoaneurysm. ? IMPRESSION:? ? 1. Heterogeneous collection in the left inguinal region consistent with a hematoma given clinical history. ? 2. No evidence of a pseudoaneurysm.? ? If there is clinical suspicion for an arteriovenous fistula, recommend further evaluation with dedicated Doppler interrogation.? ? ? Dictated by: Channing Villatoro M.D. on 07/30/2021 at 23:28 ? ? Approved by: Channing Villatoro M.D. on 07/30/2021 at 23:32 ECG Data Attestation: I personally reviewed and interpreted this ECG as follows: Interpretation: EKG 1, AFib with RVR. No ST elevation. Depression in V5 possibly be 6. Rate of 135, QRS 84 and QTC of 438. Sinus rhythm rate 87 AK 170 QRS of 92 and QTC 433. No acute ST elevation depression noted. MDM Narrative Medical decision making narrative: This is a 76-year-old female comes to the emergency department with complaint of sudden increase of left thigh pain from large hematoma and bruising after having a heart catheterization for ablation. Patient likely irritated the area by sitting in her chair for prolonged period of time which she has not done since her hospitalization. She on exam appears to have increased in size based on the markings present on her skin from her hospital stay. Ultrasound does show a large hematoma, I do not have comparison is available but there is no sign of pseudoaneurysm or active bleed. Patient's hemoglobin appears stable from 2 days ago. Renal function, electrolytes are appropriate the patient was in AFib RVR with intermittent hypotension which improved after she cardioverted on her own without intervention to a sinus rhythm. Patient did receive a dose of IV pain medication which he found quite helpful. I spoke with her cardiology team is her troponin is in the positive range but not trending upwards she denies chest pain or shortness of breath or any other symptoms although she has had some dizziness at home intermittently. Patient case was discussed with Dr. Licea, who reviewed her files in [facility] and recommends at this time adding amiodarone for rhythm control and patient has follow-up in about 10 days. All questions answered. Patient does have narcotic pain medication at home which she has not been taking and was encouraged to take if needed with continued gentle movement. 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 If you are having persistent or worsening symptoms please call to set up a sooner appointment. I spoke with your cardiology team today, they recommend starting you on a medication called amiodarone because urine atrial fibrillation with a fast rate during your stay. Prescription sent to [facility] in [place] You can use warm compresses to the hematoma in your thigh, continue to monitor for changes in size. You may continue to increase your activity and movement as tolerated. If in activity is painful or make sure symptoms much worse do not continue with this activity or position. You may take 1-2 tablets of your hydrocodone/apap every 6 hours as needed. Please return if you have fevers, new chest pain, shortness of breath, passing out, persistent dizziness, increasing size or density of your hematoma, new numbness, tingling or weakness or other new or concerning symptoms. Prescriptions: New amiodarone 200 mg tablet See Rx Instructions .ROUTE .COMPLEX Qty: 60 0RF Rx Instructions: 400mg (2 tabs) po BID x 7 days, then 200mg (1 tab) po BID x 7 days, then 200mg po daily. No Action psyllium Packet 1 packet PO DAILY 0RF vhmfnxaasshh-rczpxkvr-plbhkc Tablet 1 tab PO DAILY 0RF Eliquis 5 mg tablet 5 mg PO BID Qty: 55 0RF Referrals: Neli Watkins MD [Primary Care Provider] -
--- NOTE | 2021-07-30 22:45 | DI.US.S_ITS ---
PROCEDURE: US EXTREMITY NONVASC LOWER LT INDICATIONS: GROIN HEMATOMA 1 WEEK POST CARDIAC CATH TECHNIQUE: Real-time scanning was performed of the left inguinal region, with image documentation. COMPARISON: None. FINDINGS: There is a heterogeneous collection in the left inguinal region measuring 7.4 x 5.5 x 14.4 cm consistent with a hematoma. No internal vascularity on color Doppler interrogation to suggest a pseudoaneurysm. IMPRESSION: 1. Heterogeneous collection in the left inguinal region consistent with a hematoma given clinical history. 2. No evidence of a pseudoaneurysm. If there is clinical suspicion for an arteriovenous fistula, recommend further evaluation with dedicated Doppler interrogation. Dictated by: Channing Villatoro M.D. on 07/30/2021 at 23:28 Approved by: Channing Villatoro M.D. on 07/30/2021 at 23:32
--- NOTE | 2021-07-30 22:45 | DI.RAD.S_ITS ---
PROCEDURE: XR CHEST 1V INDICATIONS: groin hematoma TECHNIQUE: One view of the chest was acquired. COMPARISON: None. FINDINGS: Surgical changes and devices: None. Lungs and pleura: Lungs are clear. No pleural effusions or pneumothorax. Mediastinum: Mediastinal contours appear normal. Heart size is normal. Bones and chest wall: No suspicious bony lesions. Overlying soft tissues appear unremarkable. IMPRESSION: 1. No acute cardiopulmonary disease. Dictated by: Channing Villatoro M.D. on 07/30/2021 at 23:39 Approved by: Channing Villatoro M.D. on 07/30/2021 at 23:40
--- NOTE | 2021-07-30 22:48 | PC.NURSE ---
Pt appears to have converted to NSR at 2235. Provider notified and RT contacted to complete EKG. Provider in assessing pt at this time.
[2021-07-30 23:01] LABS: Troponin I 0.216 ng/mL (0.01-0.034)
[2021-07-30] MEDS: fentaNYL 100 MCG/2 ML INJ 50 MCG IV (23:03)
[2021-07-30 23:17] LABS: NT-proBNP (BNP-Adult 18+) 500 pg/mL (<125)
[2021-07-31] VITALS (13 sets, daily range): BP systolic 110–132; BP diastolic 53–62; PULSE 81–91; RESP 9–31; O2SAT 97–99
--- NOTE | 2021-07-31 00:40 | CM.MNRNOTE ---
Pt groin remains unchanged. Pt states her pain is slightly better after the fentanyl dose per MAY. Pt remains in NSR with rate in 80s. AxOx4, family at bedside.
[2021-07-31 01:05] LABS: Troponin I 0.206 ng/mL (0.01-0.034)
[2021-07-31] MEDS: HYDROCODONE/ACET 5/325 TABLET 1 TAB PO (02:17)
[2021-07-31] MEDS: AMIODARONE 200 MG TABLET 400 MG PO (02:18)
--- NOTE | 2021-07-31 02:31 | PC.NURSE ---
Pt ambulated to restroom with this RN SBA. Pt reported feeling much better, very little pressure now.
--- NOTE | 2021-07-31 02:57 | PC.NURSE ---
Pt left groin hematoma unchanged throughout ER visit. VSS at time of discharge. Pt and family (daughter and ) verbalized understanding of discharge instructions. Pt ambulated from ER independently.
== END 2021-07-31 02:59 | disposition home or self-care (01) ==
PROVIDERS: Emergency Provider Emergency Medicine; PCP Internal Medicine
DX: I48.91 Unspecified atrial fibrillation (principal); S70.12XA Contusion of left thigh, initial encounter; Z79.01 Long term (current) use of anticoagulants
CPT/HCPCS: 36415; 71045; 76882; 80053; 82550; 83690; 83735; 83880; 84484; 85025; 85610; 85730; 93005; 96374; 99284; J3010

== ENCOUNTER → 2022-05-10 18:55 | Outpatient (ROUT) | payer MEDICARE, SELFPAY | PROVIDERS: Visit Provider Dermatology | DX: Z48.817 Encounter for surgical aftercare following surgery on the skin and subcutaneous tissue (principal) | CPT/HCPCS: 87070; 87075; 87205 ==

== ENCOUNTER 2022-09-05 21:48 | Emergency (ER) | payer MEDICARE, SELFPAY ==
[2022-09-05] VITALS (14 sets, daily range): BP systolic 118–168; BP diastolic 57–103; PULSE 81–126; RESP 11–22; TEMP 37; O2SAT 94–98; BMI 27.8
--- NOTE | 2022-09-05 22:04 | DI.RAD.S_ITS ---
PROCEDURE: XR CHEST 1V INDICATIONS: chest pain TECHNIQUE: One view of the chest was acquired. COMPARISON: [facility], CR, XR CHEST 1V, 07/30/2021, 23:10. FINDINGS: Surgical changes and devices: None. Lungs and pleura: Lungs are clear. No pleural effusions or pneumothorax. Mediastinum: Mediastinal contours appear normal. Heart size is normal. Bones and chest wall: No suspicious bony lesions. Overlying soft tissues appear unremarkable. IMPRESSION: 1. No acute cardiopulmonary disease. Dictated by: Channing Villatoro M.D. on 09/05/2022 at 23:19 Approved by: Channing Villatoro M.D. on 09/05/2022 at 23:39
[2022-09-05 22:18] LABS: Add Manual Diff / Slide Review NO; Basophils Absolute Auto 200 /uL (0-100); Basophils Percent Auto 2.9 % (0-2); Eosinophils Absolute Auto 100 /uL (0-450); Eosinophils Percent Auto 1.9 % (2-4); Hematocrit 43.3 % (36-46); Lymphocytes Absolute Auto 2100 /uL (1100-4500); Lymphocytes Percent Auto 27.7 % (25-40); Mean Corpuscular HGB Conc 34.7 % (30-36); Mean Corpuscular Hemoglobin 30.8 PG (26-34); Mean Corpuscular Volume 88.7 fL (80-100); Monocytes Absolute Auto 400 /uL (0-900); Monocytes Percent Auto 5.5 % (3-14); Neutrophils Absolute Auto 4600 /uL (1500-7000); Platelet Count 222 X10^3/uL (150-400); Red Blood Cell Count 4.88 X10^6/uL (4.0-5.2); Red Cell Distribution Width 13.1 % (11.6-14.8); White Blood Cell Count 7.4 X10^3/uL (4.5-11.0)
[2022-09-05 22:20] LABS: INR 1.3 (0.9-1.3); Prothrombin Time 15.4 SECONDS (10.1-12.7)
[2022-09-05 22:22] LABS: PTT Partial Thromboplastin Tim 40 SECONDS (26-36)
[2022-09-05 22:27] LABS: Alanine Aminotransferase 21 IU/L (<35); Albumin 4.3 g/dL (3.5-5.0); Albumin Globulin Ratio 1.3 (1.0-2.8); Alkaline Phosphatase 93 U/L (38-126); Aspartate Aminotransferase 26 IU/L (14-36); BUN Creatinine Ratio 26.5 (6-22); Bilirubin Total 0.2 mg/dL (0.2-1.3); Blood Urea Nitrogen 18 mg/dL (7-17); Calcium 9.2 mg/dL (8.4-10.2); Carbon Dioxide 30 mmol/L (22-32); Chloride 102 mmol/L (98-107); Creatine Kinase 41 U/L (30-135); Estimated Glomerular Filt Rate > 60 mL/min (>60); Globulin 3.4 g/dL (1.7-4.1); Glucose 98 mg/dL (80-110); HEMOLYSIS < 15 (0-50); Lipase 136 U/L (23-300); Magnesium 2.2 mg/dL (1.6-2.3); Potassium 3.9 mmol/L (3.4-5.1); Sodium 137 mmol/L (137-145); Total Protein 7.7 g/dL (6.3-8.2)
[2022-09-05 22:38] LABS: Troponin I < 0.012 ng/mL (0.01-0.034)
--- NOTE | 2022-09-05 23:20 | ED.ARRPALP ---
HPI - Arrhythmia/Palpitations General Chief Complaint: Arrhythmia/Palpitations Stated Complaint: High pulse Time Seen by Provider: 09/05/22 23:19 Source: patient Mode of arrival: Ambulatory History of Present Illness HPI narrative: 77-year-old woman with history of paroxysmal atrial fibrillation post cardiac ablation July 23, 2021 continues on Eliquis with no additional medications was in her usual state of excellent health until 830 tonight. She states that she saw Dr. Cuevas in routine follow-up 2 days ago with a normal EKG and a clean bill of health. After dinner she noted that all of sudden her heart was faster and irregular. This was not associated with fevers, cough, nausea or vomiting. No chest pain or tightness. She has not recently had any lower extremity edema. Related Data Home Medications Medication Instructions Recorded Confirmed prnrkwgxjpzf-bpmlxleo-qlawig tablet 1 tab PO DAILY 08/20/20 06/10/22 psyllium 1 packet PO DAILY PRN 11/05/21 06/10/22 Previous Rx's Medication Instructions Recorded apixaban 5 mg tablet (Eliquis) 5 mg PO BID #55 tabs 08/20/20 Allergies Allergy/AdvReac Type Severity Reaction Status Date / Time azithromycin [AZITHROMYCIN] Allergy Unknown ITCHING Verified 06/10/22 15:58 doxycycline [DOXYCYCLINE] Allergy Unknown ITCHING Verified 06/10/22 15:58 Review of Systems Review of Systems Narrative: Pertinent positive and negative findings as per HPI Patient History Medical History Allergic rhinitis (06/29/16) Allergic rhinitis (Unknown) Bladder cancer (~2018) Cataracts, bilateral (~1989) Change in bowel habits Chickenpox (~1949) Chronic back pain (2001) Hemorrhoids Instability of left ankle joint (06/29/16) Instability of left knee joint Left knee pain Measles (~1949) Neck pain (06/29/16) Obstructive sleep apnea (adult) (pediatric) Osteoarthritis (Unknown) Ovarian cyst (~1972) 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 Mother Cancer Social History household members: spouse and family Smoking Status: Former smoker alcohol intake: former substance use type: does not use Smoking Status: Former smoker alcohol intake frequency: 0-2 drinks per day Substance Use Type: does not use Exam Initial Vital Signs Initial Vital Signs: Vital Signs Temperature 98.6 F 09/05/22 21:50 Pulse Rate 126 H 09/05/22 21:50 Respiratory Rate 18 09/05/22 21:50 Blood Pressure 168/103 H 09/05/22 21:50 Pulse Oximetry 97 09/05/22 21:50 Oxygen Delivery Method Room Air 09/05/22 21:50 General: Healthy appearing, in no acute distress. Able to give a complete and coherent history. Well-nourished well-developed HEENT: Moist mucous membranes, normal sclera with reactive pupils, Neck: No JVD, supple Respiratory: Lungs are clear to auscultation, no wheezing no rales no rhonchi. Full and symmetrical air movement Cardiac: Irregular and rapid with no murmurs no bruits Abdomen: Soft, nontender, good bowel tones, no flank pain Skin: Warm and dry, no rashes Neurologic: Grossly neurologically intact with no obvious asymmetries or abnormalities Extremities: No trauma, well perfused Psych: Cooperative, appropriate insight and affect Course Orders Ordered: ED Orders 09/05/22 22:02 Complete Blood Count AUTO DIFF Stat Comprehensive Metabolic Panel Stat Lipase Stat Magnesium Stat PTT Partial Thromboplastin Naif Stat Prothrombin Time INR Stat Troponin & CK Cardiac Panel Stat 09/05/22 22:04 XR chest 1V Stat EKG-12 Lead Stat Discontinued Medications Diltiazem HCl (Diltiazem 5 Mg/Ml Sdv) 20 mg IV NOW ONE Stop: 09/05/22 23:33 Last Admin: 09/05/22 23:36 Dose: 20 mg Documented By: SB Vital Signs Vital signs: Vital Signs - 8 hr 09/05/22 21:50 09/05/22 21:57 09/05/22 21:58 Temperature 98.6 F Pulse Rate 126 H 124 H Respiratory Rate 18 15 Blood Pressure 168/103 H 168/103 H Pulse Oximetry 97 96 Oxygen Delivery Method Room Air 09/05/22 21:58 09/05/22 22:00 09/05/22 22:00 Temperature Pulse Rate 123 H 122 H Respiratory Rate 18 14 Blood Pressure 167/84 H Pulse Oximetry 98 98 Oxygen Delivery Method Room Air 09/05/22 23:36 09/05/22 22:15 09/05/22 22:15 Temperature Pulse Rate 123 H 123 H Respiratory Rate 14 Blood Pressure 143/91 H 159/87 H Pulse Oximetry 95 Oxygen Delivery Method 09/05/22 22:30 09/05/22 22:30 09/05/22 22:45 Temperature Pulse Rate 123 H Respiratory Rate 11 L Blood Pressure 151/87 H 145/84 H Pulse Oximetry 94 Oxygen Delivery Method 09/05/22 22:45 09/05/22 23:02 09/05/22 23:03 Temperature Pulse Rate 125 H 122 H Respiratory Rate 19 Blood Pressure 142/99 H Pulse Oximetry 94 96 Oxygen Delivery Method 09/05/22 23:03 09/05/22 23:15 09/05/22 23:15 Temperature Pulse Rate 123 H 123 H Respiratory Rate 17 13 Blood Pressure 134/84 Pulse Oximetry 96 94 Oxygen Delivery Method 09/05/22 23:30 09/05/22 23:30 09/05/22 23:40 Temperature Pulse Rate 124 H 111 H Respiratory Rate 13 12 Blood Pressure 143/91 H Pulse Oximetry 94 94 Oxygen Delivery Method 09/05/22 23:40 09/05/22 23:45 09/05/22 23:45 Temperature Pulse Rate 81 Respiratory Rate 22 Blood Pressure 119/57 L 118/58 L Pulse Oximetry 97 Oxygen Delivery Method 09/06/22 00:00 09/06/22 00:00 Temperature Pulse Rate 66 Respiratory Rate 14 Blood Pressure 111/59 L Pulse Oximetry 95 Oxygen Delivery Method Room Air MDM - Arrhythmia/Palpitations Lab Data 09/05/22 22:02 09/05/22 22:02 Labs: Lab Results 09/05/22 09/05/22 09/05/22 Range/Units 22:02 22:02 22:02 WBC 7.4 (4.5-11.0) X10^3/uL RBC 4.88 (4.0-5.2) X10^6/uL Hgb 15.0 (12.0-16.0) g/dL Hct 43.3 (36-46) % MCV 88.7 (80-100) fL MCH 30.8 (26-34) PG MCHC 34.7 (30-36) % RDW 13.1 (11.6-14.8) % Plt Count 222 (150-400) X10^3/uL Neut % (Auto) 62.0 (50-75) % Lymph % (Auto) 27.7 (25-40) % [place] % (Auto) 5.5 (3-14) % Eos % (Auto) 1.9 L (2-4) % Baso % (Auto) 2.9 H (0-2) % Neut # (Auto) 4600 (1973-4436) /uL Lymph # (Auto) 2100 (9069-8750) /uL [place] # (Auto) 400 (0-900) /uL Eos # (Auto) 100 (0-450) /uL Baso # (Auto) 200 H (0-100) /uL PT 15.4 H (10.1-12.7) SECONDS INR 1.3 (0.9-1.3) APTT 40 H (26-36) SECONDS Sodium 137 (137-145) mmol/L Potassium 3.9 (3.4-5.1) mmol/L Chloride 102 (98-107) mmol/L Carbon Dioxide 30 (22-32) mmol/L BUN 18 H (7-17) mg/dL Creatinine 0.68 (0.52-1.04) mg/dL Estimated GFR > 60 (>60) mL/min BUN/Creatinine Ratio 26.5 H (6-22) Glucose 98 (80-110) mg/dL Calcium 9.2 (8.4-10.2) mg/dL Magnesium 2.2 (1.6-2.3) mg/dL Total Bilirubin 0.2 (0.2-1.3) mg/dL AST 26 (14-36) IU/L ALT 21 (<35) IU/L Alkaline Phosphatase 93 (38-126) U/L Total Creatine Kinase 41 (30-135) U/L CK-MB (CK-2) TNP CK-MB (CK-2) Rel Index TNP Troponin I < 0.012 (0.01-0.034) ng/mL Total Protein 7.7 (6.3-8.2) g/dL Albumin 4.3 (3.5-5.0) g/dL Globulin 3.4 (1.7-4.1) g/dL Albumin/Globulin Ratio 1.3 (1.0-2.8) Lipase 136 (23-300) U/L MDM Narrative Medical decision making narrative: CC: Atrial fibrillation at 8:30 a.m. tonight. This is an acute issue of a chronic problem uncertain prognosis Complicating co-morbidities: Post cardiac ablation July 23, 2021 with no recurrent episodes of atrial fibrillation. She is anticoagulated Data collected from: patient, Differential considered: Recurrent AFib, acute coronary syndrome, electrolyte abnormality Exam documented above, pertinent findings include: Aside from her rate in the 120s exam is entirely unremarkable Lab Test results independently reviewed as above. Pertinent findings: CBC is unremarkable with no evidence of leukocytosis or anemia PT is 15.4 and PTT is 40 Chemistries are reassuring with normal magnesium, calcium, potassium, renal function Troponin is undetectable Independently reviewed EKG atrial flutter with variable block at a rate of 119. Nonspecific ST T wave abnormalities. Repeat EKG shows sinus rhythm. No acute ischemia. Imaging studies independently reviewed: Chest x-ray shows no acute abnormalities Treatments: 20 mg of IV diltiazem Re-evaluations: 1240am appears to have spontaneously converted to sinus Discussion: 77-year-old woman who is 13 months post ablation for paroxysmal atrial fibrillation. She remains anticoagulated. Tonight about 830 while quietly sitting after dinner she felt her heart go into atrial fibrillation. In the emergency department workup is reassuring with normal labs no evidence of elevated troponin, and unremarkable chest x-ray. She was given 20 mg of IV diltiazem and approximately an hour after that spontaneously converted to sinus rhythm. Repeat EKG is equally reassuring. Patient notes that she feels much more ?relaxed?. At this point she is safe for discharge home, will ask her to contact Dr. Cuevas to let him know that she did have this 4 hour episode of self converting atrial fibrillation and see if he has any additional recommendations. At this point blood pressure is appropriate heart rate is appropriate and she remains anticoagulated. Discharge Plan Departure Patient Disposition: Home Clinical Impression: Paroxysmal A-fib Instructions: DI for Atrial Fibrillation Activity Restrictions/Additional Instructions: Thank you for coming in tonight It looks like you had an approximate 4 hours of atrial fibrillation. Your blood work was reassuring. There is no sign of acute illness, electrolyte abnormalities or heart attack. Your initial EKG showed atrial fibrillation and your repeat EKG showed sinus rhythm. In the emergency department you received a single dose of 20 mg of IV diltiazem. I believe this allowed your heart to slow just enough for your intrinsic rhythm to take over At this time mildly recommendation is to continue with her anticoagulation. Please do call Dr. Cuevas tomorrow to let him know that you are in the emergency department you had a brief episode of atrial fibrillation that converted back to sinus rhythm and see if he has any additional recommendations for you. If you find that you are getting worse or develop any new symptoms, please feel free to return to the emergency department for further evaluation. Prescriptions: No Action [id number]-taydduuq-wgczcg Tablet 1 tab PO DAILY psyllium Packet 1 packet PO DAILY PRN Eliquis 5 mg tablet 5 mg PO BID Qty: 55 0RF Referrals: Miscellaneous,Doctor, MD [Primary Care Provider] - Stand Alone Forms: Patient Portal/API
[2022-09-05] MEDS: dilTIAZem 5 MG/ML SDV 20 MG IV (23:36)
[2022-09-06] VITALS: BP 111/59; PULSE 66; RESP 14; O2SAT 95
[2022-09-06 00:15] VITALS: BP 129/58; PULSE 83; RESP 21; O2SAT 97
[2022-09-06 00:30] VITALS: BP 120/57; PULSE 77; RESP 18; O2SAT 95
[2022-09-06 00:45] VITALS: BP 130/73; PULSE 83; O2SAT 97
== END 2022-09-06 00:56 | disposition home or self-care (01) ==
PROVIDERS: Emergency Provider Emergency Medicine
DX: I48.0 Paroxysmal atrial fibrillation (principal); Z79.01 Long term (current) use of anticoagulants
CPT/HCPCS: 36415; 71045; 80053; 82550; 83690; 83735; 84484; 85025; 85610; 85730; 93005; 96374; 99284

== ENCOUNTER → 2022-10-01 13:18 | Outpatient (CLI) | payer OTHER, SELFPAY ==
--- NOTE | 2022-10-01 13:22 | DI.CT.S_ITS ---
PROCEDURE: CT IVP A/P W/WO INDICATIONS: Malignant neoplasm of bladder TECHNIQUE: Optional 5 mm thick noncontrast images acquired from the diaphragm to the symphysis pubis. After the administration of intravenous contrast, 5 mm thick images acquired from the diaphragm to the symphysis pubis after a 10-minute delay. 2 mm thick coronal and sagittal reformats were then performed of the kidneys and ureters. For radiation dose reduction, the following was used: automated exposure control, adjustment of mA and/or kV according to patient size. COMPARISON: [facility], CT, CT ABDOMEN PELVIS WO/W CON, 01/27/2018, 9:48. FINDINGS: Lung bases: No pleural effusion. Urinary system: No renal, ureteral, or bladder stone visualized. No definite evidence of a solid renal mass. The opacified portions of the renal collecting systems and ureters are unremarkable without a definite filling defect demonstrated. Intraluminal filling defects within the urinary bladder present on the prior CT IVP are not visualized on the current study, however the bladder is not well evaluated by CT. Other solid organs: A few scattered small hypodensities are present, too small to characterize, but not significantly changed. Gallbladder is unremarkable . Biliary system is non dilated. No peripancreatic fluid collection or evidence of acute pancreatitis. Spleen is normal in size and enhancement. No adrenal nodules. Peritoneum and bowel: No small bowel obstruction. No free air or substantial free fluid. Nodes and vessels: No retroperitoneal or mesenteric adenopathy by size criteria. Aorta and inferior vena cava are normal in size. Pelvis: No pathologic free pelvic fluid. No adenopathy. Bones: Multilevel degenerative change of the visualized spine. IMPRESSION: No definite evidence of metastatic disease identified within the abdomen or pelvis. Dictated by: Kentrell Kurtz M.D. on 10/01/2022 at 15:09 Approved by: Kentrell Kurtz M.D. on 10/01/2022 at 15:31
== END ==
PROVIDERS: PCP Internal Medicine; Referring Provider Urology; Visit Provider Urology
DX: C67.9 Malignant neoplasm of bladder, unspecified (principal); R19.09 Other intra-abdominal and pelvic swelling, mass and lump
CPT/HCPCS: 74178; Q9967

== ENCOUNTER → 2023-09-23 16:45 | Outpatient (CLI) | payer MEDICARE, OTHER, SELFPAY ==
--- NOTE | 2023-09-23 16:46 | DI.MRI.S_ITS ---
PROCEDURE: MR SHOULDER RT WO CON INDICATIONS: Bursitis of right shoulder TECHNIQUE: Noncontrast oblique coronal T2 fast spin echo with fat saturation, oblique sagittal T1 spin echo and T2 fast spin echo with fat saturation, axial T1 spin echo and T2 fast spin echo with fat saturation through the shoulder. COMPARISON: [facility], CR, XR SHOULDER 2+ VIEWS RIGHT, 08/19/2023, 10:54. FINDINGS: Image quality: Excellent. Rotator cuff: Moderate grade articular and bursal surface partial thickness tear involving distal supraspinatus at its insertion on the humeral head is seen extending to musculotendinous junction. Focal full-thickness perforation involving anterior fibers of distal supraspinatus at its insertion on the humeral head is also likely present. Distal infraspinatus tendinosis and low-grade articular surface partial-thickness tear. Low-grade intrasubstance partial-thickness tear also seen involving distal subscapularis. Sagittal images demonstrate [id number]-mo-jgwhlttd supraspinatus muscle atrophy. Bones and bursae: No bone marrow contusions or fractures. Moderate acromioclavicular joint osteoarthritic changes are seen with joint space narrowing and downward osteophyte formation depressing the musculotendinous junction of supraspinatus. Type 1 acromion is seen, without an os acromiale. Small to moderate amount of subacromial subdeltoid bursal fluid is noted, no gross loose bodies. Capsule and soft tissues: Fraying of superior anterior labrum with T2 hyperintense signal concerning for subtle superior anterior labral tear. The long head of the biceps tendon demonstrates normal location and morphology. The rotator interval appears normal, without fibrosis. The coracohumeral ligament is normal in thickness. IMPRESSION: 1. Moderate grade articular and bursal surface partial thickness tear involving distal supraspinatus extending to musculotendinous junction with focal full-thickness perforation involving anterior fibers of supraspinatus at its insertion on the humeral head. Mild to moderate supraspinatus muscle atrophy. 2. Low-grade articular surface partial-thickness tear involving distal supraspinatus extending to musculotendinous junction. Low-grade intrasubstance partial-thickness tear involving distal subscapularis. 3. Moderate acromioclavicular joint osteoarthritis. No fracture or dislocation. Small to moderate amount of subacromial subdeltoid bursal fluid. No loose bodies. 4. Suggestion of subtle superior anterior labral tear. Dictated by: Omar Evans M.D. on 09/23/2023 at 17:46 Approved by: Omar Evans M.D. on 09/23/2023 at 17:48
== END ==
PROVIDERS: PCP Internal Medicine; Referring Provider Orthopaedic Surgery; Visit Provider Orthopaedic Surgery
DX: M75.111 Incomplete rotator cuff tear or rupture of right shoulder, not specified as traumatic (principal); M75.51 Bursitis of right shoulder; M19.011 Primary osteoarthritis, right shoulder
CPT/HCPCS: 73221

== ENCOUNTER → 2023-11-10 08:22 | Outpatient (CLI) | payer MEDICARE, OTHER, SELFPAY ==
--- NOTE | 2023-11-10 08:24 | DI.MG.S_ITS ---
BILATERAL DIGITAL SCREENING MAMMOGRAM 3D/2D WITH CAD: 11/10/2023 CLINICAL: Routine screening. Comparison is made to exams dated: 04/08/2021 mammogram and 03/29/2019 mammogram - [facility]. Both breasts are almost entirely fatty (category a/<25% glandular tissue). Current study was also evaluated with a Computer Aided Detection (CAD) system. No significant masses, calcifications, or other findings are seen in either breast. There has been no significant interval change. IMPRESSION: NEGATIVE There is no mammographic evidence of malignancy. A 1 year screening mammogram is recommended. Based on the Tyrer Cuzick model (a risk assessment model) the patient's lifetime risk is 1.8% and her 10 year risk is 0.0%. According to the ACR, ACS, and NCCN guidelines, an annual breast MRI exam along with mammogram is recommended if the patient's lifetime risk is 20% or greater. This exam was interpreted at Station ID: [id number]. NOTE: For mammograms, a report in lay terms will be sent to the patient. Approximately 15% of breast malignancies will not be visualized mammographically. In the management of a palpable breast mass, a negative mammogram must not discourage biopsy of a clinically suspicious lesion. Electronically Signed By: Elena baldwin/karen:11/10/2023 16:37:12 letter sent: Normal Exam ACR BI-RADS Category 1: Negative 3341F
== END ==
PROVIDERS: PCP Internal Medicine; Referring Provider Internal Medicine; Visit Provider Internal Medicine
DX: Z12.31 Encounter for screening mammogram for malignant neoplasm of breast (principal); R92.313 Mammographic fatty tissue density, bilateral breasts
CPT/HCPCS: 77063; 77067

== ENCOUNTER → 2024-02-03 11:27 | Outpatient (CLI) | payer MEDICARE, OTHER, SELFPAY ==
--- NOTE | 2024-02-03 | DI.RAD.S_ITS ---
PROCEDURE: XR FOOT RT MIN 3V INDICATIONS: Pain in right foot TECHNIQUE: Three views of the foot were acquired. COMPARISON: None. FINDINGS: Bones: Severe hallux valgus is seen with weight-bearing. There is also significant 2nd toe hammertoe deformity and pes planus. Osteoarthritic changes are noted throughout right foot. No acute fracture or dislocation. Soft tissues: No tibiotalar joint effusion. Achilles tendon appears normal. IMPRESSION: Severe hallux valgus, pes planus and 2nd toe hammertoe deformity with weight-bearing. No acute fracture or dislocation. Bihk-gf-tlvfkemv right foot joint osteoarthritis. Dictated by: Omar Evans M.D. on 02/03/2024 at 19:51 Approved by: Omar Evans M.D. on 02/03/2024 at 19:53
== END ==
PROVIDERS: PCP Internal Medicine; Referring Provider Podiatrist Foot & Ankle Surgery; Visit Provider Podiatrist Foot & Ankle Surgery
DX: M20.11 Hallux valgus (acquired), right foot (principal); M21.41 Flat foot [pes planus] (acquired), right foot; M20.41 Other hammer toe(s) (acquired), right foot; M19.071 Primary osteoarthritis, right ankle and foot; M79.671 Pain in right foot
CPT/HCPCS: 73630

== ENCOUNTER 2024-09-21 09:20 | Emergency (ER) | payer MEDICARE, OTHER, SELFPAY ==
[2024-09-21 09:34] VITALS: BP 160/76; PULSE 72; RESP 18; TEMP 36.5; O2SAT 96; BMI 29.2
--- NOTE | 2024-09-21 09:41 | DI.US.S_ITS ---
PROCEDURE: US PERIPH VENOUS LOW EXTREM LT INDICATIONS: left calf swelling TECHNIQUE: Real-time imaging, as well as color and pulse Doppler interrogation, were performed of the lower extremity deep veins from the inguinal ligament to the popliteal fossa, with documentation of the visualized calf veins. COMPARISON: None. FINDINGS: The common femoral, femoral, popliteal, and the visualized calf veins are normally compressible, and free of intraluminal thrombus. Color and pulse Doppler demonstrate normal phasic intraluminal flow. There is normal augmentation response to distal compression maneuver. Suspected ruptured Gonzalez's cyst in the popliteal fossa measuring 1.5 cm. Soft tissue edema is seen adjacent to this region. IMPRESSION: No findings of lower extremity deep venous thrombosis. Dictated by: David Rodriguez M.D. on 09/21/2024 at 11:01 Approved by: David Rodriguez M.D. on 09/21/2024 at 11:02
--- NOTE | 2024-09-21 10:21 | ED.EXTPRO ---
HPI - Extremity Problem General Chief complaint: Extremity Problem,Nontraumatic Stated complaint: Left leg pain . x 1 day Time Seen by Provider: 09/21/24 10:21 Source: patient, RN notes reviewed and old records reviewed Mode of arrival: Ambulatory Limitations: no limitations History of Present Illness HPI Narrative: 79-year-old female with history of prior cardiac ablation for atrial fibrillation, on Eliquis daily with complaint of left pain in her knee and calf after a long walk yesterday. She notes some swelling of the left calf. Patient states has a history of having a prior significant hematoma after cardiac ablation several years ago states it was very large took about 6 months for the swelling to go down still had some persistent hematoma she states it felt like it is sort of moved down words about 6 months ago but has not had any other new changes. She notes little bit of knee pain yesterday but also some increased swelling into her calf in the pain radiating down to her calf today. She states that is atypical. She states her knee she was sometimes gets aches and pains. No fevers no chills, no chest pain or shortness of breath. No nausea or vomiting no other GI or urinary symptoms. No numbness tingling weakness no skin changes no ecchymosis no new cyanosis or pallor. Patient states she continues to take her Eliquis daily. She states no other daily medications. Reports an allergy to azithromycin and doxycycline. Former smoker, occasional alcohol, no recreational drugs. Related Data Home Medications ?Medication ?Instructions ?Recorded ?Confirmed jltxkskmhqds-rmkunxmf-qqeobq tablet 1 tab PO DAILY 08/20/20 06/10/22 psyllium 1 packet PO DAILY PRN 11/05/21 06/10/22 Previous Rx's ?Medication ?Instructions ?Recorded apixaban 5 mg tablet (Eliquis) 5 mg PO BID #55 tabs 08/20/20 Allergies Allergy/AdvReac Type Severity Reaction Status Date / Time azithromycin (AZITHROMYCIN) Allergy Unknown ITCHING Verified 09/21/24 09:34 doxycycline (DOXYCYCLINE) Allergy Unknown ITCHING Verified 09/21/24 09:34 Review of Systems Review of Systems ROS Unobtainable: All systems reviewed & are unremarkable except as noted in HPI and below Patient History Medical History Obstructive sleep apnea (adult) (pediatric) Bladder cancer (~2019) Hemorrhoids Change in bowel habits Instability of left knee joint Left knee pain Osteoarthritis (Unknown) Allergic rhinitis (Unknown) Chickenpox (~1949) Chronic back pain (2001) Measles (~1949) Tinnitus of both ears (1999) Cataracts, bilateral (~1989) Ovarian cyst (~1972) Pure hypercholesterolemia (06/29/16) Post-traumatic osteoarthritis of left ankle (06/29/16) Neck pain (06/29/16) Instability of left ankle joint (06/29/16) Allergic rhinitis (06/29/16) Surgical History History of bladder surgery H/O ovarian cystectomy History of appendectomy Status post ovarian cystectomy History of cataract removal with insertion of prosthetic lens History of cataract removal with insertion of prosthetic lens History of tonsillectomy Family History Father No problems noted. Mother Cancer Social History household members: spouse and family Smoking Status: Former smoker alcohol intake: former substance use type: does not use Smoking Status: Former smoker alcohol intake frequency: 0-2 drinks per day Alcohol type: wine Exam Narrative Exam Narrative: GENERAL: Alert and oriented x three, female in mild distress HEENT: Head normocephalic, atraumatic, EOMI, pupils reactive, face symmetric, moist mucous membranes NECK: Supple, full range of motion CARDIOVASCULAR: Regular rate and rhythm without murmurs, rubs or gallops. RESPIRATORY: Breath sounds equal bilaterally, no wheezes rales or rhonchi. ABDOMEN: Soft, nontender. Normoactive bowel sounds all 4 quadrants. No guarding or rebound, rigidity, no mass : No CVA tenderness EXTREMITIES: Normal range of motion, no clubbing or edema. Left calf is slightly more swollen than the right but no edema. Patient was nontender over the knee, there was no ballotable effusion, patient has full range of motion. 2+ dorsalis pedis. No cyanosis, no pallor. Has normal gait and muscle strength as well as sensation. Neurovascularly intact NEUROLOGICAL: Cranial nerves II through XII grossly intact. Moving all extremities SKIN: Warm, dry, no petechiae, no rashes or lesions. Initial Vital Signs Initial Vital Signs: Vital Signs Temperature 97.7 F 09/21/24 09:34 Pulse Rate 72 09/21/24 09:34 Respiratory Rate 18 09/21/24 09:34 Blood Pressure 160/76 H 09/21/24 09:34 Pulse Oximetry 96 09/21/24 09:34 Oxygen Delivery Method Room Air 09/21/24 09:34 Course Orders Ordered: ED Orders 09/21/24 09:41 US periph venous low extrem lt Stat Vital Signs Vital signs: Vital Signs - 8 hr 09/21/24 10:59 09/21/24 12:09 Pulse Rate 66 Pulse Rate [Left Posterior Tibial] 80 Respiratory Rate 18 Blood Pressure 142/76 H Pulse Oximetry 97 Oxygen Delivery Method Room Air MDM - Extremity (Nontraumatic) MDM Narrative Medical decision making narrative: 79-year-old female with complaint of left calf pain and knee pain after a longer walk yesterday. Patient was on Eliquis. Notes she had a pretty significant hematoma after cardiac ablation it took several months to resolve. She has been taking her Eliquis daily but was concerned she might have developed a blood clot as she was had persistent calf pain states her knee pain has not improved and she noticed increased swelling of her left calf in comparison to the right. DVT ultrasound shows suspected ruptured popliteal/Gonzalez's cyst soft tissue edema seen adjacent to the area. No findings of lower DVT Findings reviewed with the patient. Discharge Plan Departure Patient Disposition: Home Clinical Impression: Gonzalez's cyst, ruptured Instructions: DI for Gonzalez Cyst Activity Restrictions/Additional Instructions: Your prelim DVT ultrasound shows a ruptured Gonzalez cyst. These are fairly common your swelling and discomfort should improve over time. You are formal report has not returned, has a watch for any discrepancy between the report and the initial verbal report from that is nuclear fuel processing technician. Please return if you have new or worsening changes, rapidly worsening swelling, redness, warmth or other changes. Prescriptions: No Action otokntedqqia-axrlvoqd-otvcjl Tablet 1 tab PO DAILY psyllium Packet 1 packet PO DAILY PRN Eliquis 5 mg tablet 5 mg PO BID Qty: 55 0RF Referrals: Neli Watkins MD [Primary Care Provider, Internal Medicine] Stand Alone Forms: Patient Portal/API
[2024-09-21 10:59] VITALS: PULSE 80
[2024-09-21 12:09] VITALS: BP 142/76; PULSE 66; RESP 18; O2SAT 97
== END 2024-09-21 12:11 | disposition home or self-care (01) ==
PROVIDERS: Emergency Provider Emergency Medicine; PCP Internal Medicine
DX: M66.0 Rupture of popliteal cyst (principal); Z79.01 Long term (current) use of anticoagulants
CPT/HCPCS: 93971; 99281; 99283